=== PATIENT | female | born 1980 | race Caucasian/White ===

== ENCOUNTER 2018-05-30 18:29 | Emergency (ER) | payer OTHER ==
[~2018-05-30] VITALS: Ht 162.6 cm; Wt 65.8 kg
[~2018-05-30 18:29] MED LIST: ALBU90OI INH; AMOCLA875 PO; AMOX500 PO; ANTOXYBENA OT; AZIT250 PO; BACI500TO BOTHEYES; BENZ100A PO; CARI350 PO; CEPH500 PO; CIPR250 PO; CODACE30 PO; CONEST.625 PO; CYCL10 PO; DIAZ5 PO; DICL75ER PO; GUAPHELA PO; HYDACE10B PO; HYDACE5 PO; HYDACE5325 PO; HYDGUAL120 PO; IBUP800 PO; IBUPROFEN PO; METR500 PO; NAPR500 PO; NEOPOLHCSU LEFTEAR; Norco 5-325 Ta1 EACH PO; ONDA8 PO; OXYACE5T PO; OXYACE7.5T PO; PENVK250 PO; PENVK500 PO; PHENA200 PO; PRED10 PO; PROM25 PO; RXCODACET PO; RXCYCL10 PO; RXHYDACE PO; RXOXYACE PO; RXPENVK250 PO; RXSULTRIDS PO; RXTRAM50 PO; SULTRIDS PO; TRAACE PO; TRAM50 PO; VICODIN 5/325MG PO
[2018-05-30] MEDS ORDERED: SUBOXONE PO (18:54)
[2018-05-30] MEDS ORDERED: PRED20 PO (19:12)
[2018-05-30] MEDS ORDERED: ALBU90OI INH (19:12)
== END 2018-05-30 19:19 | disposition home or self-care (01) ==
LOC: ER 18:29
DX: J40 Bronchitis, not specified as acute or chronic (principal); Z88.5 Allergy status to narcotic agent; Z88.8 Allergy status to other drugs, medicaments and biological substances; Z88.6 Allergy status to analgesic agent; Z79.899 Other long term (current) drug therapy; J45.909 Unspecified asthma, uncomplicated; Z87.891 Personal history of nicotine dependence
CPT/HCPCS: 99282